=== PATIENT | female | born 1975 | race Caucasian/White ===

== ENCOUNTER 2017-02-26 00:50 | Emergency (ER) | payer OTHER, SELFPAY | END 2017-02-26 01:35 | disposition home or self-care (01) | LOC: NAV ERS 00:50 | DX: R25.2 Cramp and spasm (principal); I25.10 Atherosclerotic heart disease of native coronary artery without angina pectoris; G89.29 Other chronic pain; M54.9 Dorsalgia, unspecified; I12.9 Hypertensive chronic kidney disease with stage 1 through stage 4 chronic kidney disease, or unspecified chronic kidney disease; E11.22 Type 2 diabetes mellitus with diabetic chronic kidney disease; N18.3 Chronic kidney disease, stage 3 (moderate); F41.9 Anxiety disorder, unspecified; F32.9 Major depressive disorder, single episode, unspecified; F17.210 Nicotine dependence, cigarettes, uncomplicated; Z79.899 Other long term (current) drug therapy; Z79.4 Long term (current) use of insulin | CPT/HCPCS: 99283 ==

== ENCOUNTER 2017-04-04 22:13 | Emergency (ER) | payer SELFPAY ==
[2017-04-04] MEDS ORDERED: Ketorolac Tromethamine 60 MG/2 ML VIAL ONE (23:02)
[2017-04-04] MEDS ORDERED: Orphenadrine Citrate 60 MG/2 ML VIAL ONE (23:02)
[2017-04-04] MEDS ORDERED: Furosemide 40 MG/4 ML VIAL ONE (23:53)
== END 2017-04-05 00:51 | disposition home or self-care (01) ==
LOC: NAV ERS 22:13
DX: M54.5 Low back pain (principal); I25.10 Atherosclerotic heart disease of native coronary artery without angina pectoris; I25.2 Old myocardial infarction; I12.9 Hypertensive chronic kidney disease with stage 1 through stage 4 chronic kidney disease, or unspecified chronic kidney disease; N18.3 Chronic kidney disease, stage 3 (moderate); E11.9 Type 2 diabetes mellitus without complications; F32.9 Major depressive disorder, single episode, unspecified; F41.9 Anxiety disorder, unspecified; F17.290 Nicotine dependence, other tobacco product, uncomplicated; Z79.4 Long term (current) use of insulin; Z79.899 Other long term (current) drug therapy; Z79.02 Long term (current) use of antithrombotics/antiplatelets
CPT/HCPCS: 96372; 96374; 96375; J0360; J1885; J1940; J2360

== ENCOUNTER 2017-05-13 21:43 | Emergency (ER) | payer MEDICAID, OTHER, SELFPAY ==
[2017-05-13] MEDS ORDERED: Ketorolac Tromethamine 30 MG/ML VIAL ONE (21:59)
[2017-05-13] MEDS ORDERED: Ondansetron HCl/PF 4 MG/2 ML Vial ONE (22:00)
[2017-05-13] MEDS ORDERED: Labetalol HCl 100 MG/20 ML VIAL ONE (22:00)
[2017-05-13 22:20] LABS: Hemoglobin 14.2 g/dL (12.0-16.0); Mean Corpuscular HGB CONC 33.3 g/dL (32.0-36.0); Mean Corpuscular Hemoglobin 28.8 pg (27.0-31.0); Mean Corpuscular Volume 86.6 fl (81.0-99.0); Mean Platelet Volume 11.1 fL (7.4-10.4); Platelet Count 186 thou/uL (130-400); RBC Distribution Width 11.8 % (11.5-14.5); Red Blood Cell (RBC) Count 4.94 mill/uL (4.20-5.40); White Blood Cell (WBC) Count 8.6 thou/uL (4.8-10.8)
--- NOTE | 2017-05-13 22:20 | RAD ---
AP VIEW CHEST 05/13/17 HISTORY: Chest pain. AP view of the chest is obtained. The lungs are well aerated. No evidence of active intrathoracic di sease seen. No evidence of effusions, pneumonia or pneumothorax seen. IMPRESSION: Unremarkable AP view chest. POS: [facility]
[2017-05-13 22:28] LABS: ALT (SGPT) 76 U/L (8-55); AST (SGOT) 93 U/L (5-34); Albumin 3.7 g/dL (3.5-5.0); Alkaline Phosphatase 155 U/L (40-150); Anion Gap 20 mmol/L (10-20); BUN (Urea Nitrogen) 15 mg/dL (7.0-18.7); Bilirubin, Total 0.3 mg/dL (0.2-1.2); CK (CPK) 81 U/L (29-168); Calc. Creatinine Clearance 0 mL/min (70-130); Calcium 8.5 mg/dL (7.8-10.44); Carbon Dioxide 19 mmol/L (22-29); Chloride 94 mmol/L (98-107); Estimated GFR-MDRD 33; Globulin 4.3 g/dL (2.4-3.5); Potassium 3.9 mmol/L (3.5-5.1); Sodium 129 mmol/L (136-145)
[2017-05-13 22:30] LABS: CKMB 2.3 ng/mL (0-6.6); Troponin I 0.017 ng/mL (< 0.028)
[2017-05-13 22:32] LABS: Eosinophils 1 % (0-10); Lymphocytes 27 % (21-51); MDiff Complete? YES; Monocytes 4 % (0-10); Neutrophil 68 % (42-75); PLT Morphology Comment Appears Adequate; RBC Morphology Normal
[2017-05-13] MEDS ORDERED: Sodium Chloride 0.9% 100 ML ONE (22:34)
[2017-05-13 22:44] LABS: Bilirubin Negative (Negative); Blood, Urine Small (Negative); Clarity Clear (Clear); Glucose, Urine (Dipstick) >=1000 mg/dL (Negative); Leukocyte Negative (Negative); Nitrite Negative (Negative); Protein, Urine (Dipstick) > or equal to 300 mg/dL (Neg-Trace); Specific Gravity, Urine 1.015 (1.005-1.030); Urobilinogen 0.2 mg/dL (0.2-1.0); pH, Urine 5.5 (5.0-9.0)
[2017-05-13 22:46] LABS: Glucose 610 mg/dL (70-105)
[2017-05-13] MEDS ORDERED: Insulin Regular 300 UNITS/3 ML VIAL ONE (22:47)
[2017-05-13 22:53] LABS: RBC/HPF 0-3 HPF (0-3); WBC/HPF None Seen HPF (0-3)
[2017-05-13 22:54] LABS: Bacteria/HPF 1+ HPF (None Seen); Squamous Epithelial 0-3 HPF (0-3); Yeast-All Forms Rare HPF (None Seen)
[2017-05-14] MEDS ORDERED: Fentanyl 100 MCG/2 ML VIAL ONE (00:27)
[2017-05-14] MEDS ORDERED: Sodium Chloride 0.9% 1,000 ML ONE (00:27)
[2017-05-14] MEDS ORDERED: Ondansetron HCl/PF 4 MG/2 ML Vial ONE (00:27)
== END 2017-05-14 01:15 | disposition home or self-care (01) ==
LOC: NAV ERS 21:43
DX: E11.65 Type 2 diabetes mellitus with hyperglycemia (principal); R07.9 Chest pain, unspecified; K52.9 Noninfective gastroenteritis and colitis, unspecified; I25.10 Atherosclerotic heart disease of native coronary artery without angina pectoris; I21.3 ST elevation (STEMI) myocardial infarction of unspecified site; I10 Essential (primary) hypertension; F41.9 Anxiety disorder, unspecified; F32.9 Major depressive disorder, single episode, unspecified; F17.210 Nicotine dependence, cigarettes, uncomplicated; Z79.84 Long term (current) use of oral hypoglycemic drugs; Z79.4 Long term (current) use of insulin; Z79.899 Other long term (current) drug therapy
CPT/HCPCS: 36415; 36416; 71010; 80053; 81003; 81015; 82010; 82553; 83880; 84484; 85025; 93005; 96361; 96374; 96375; 96376; J1815; J1885; J2405; J3010; J7050

== ENCOUNTER 2017-09-30 07:15 | Emergency (ER) | payer SELFPAY ==
[2017-09-30 07:44] LABS: Bilirubin Negative (Negative); Blood, Urine Trace (Negative); Clarity Clear (Clear); Glucose, Urine (Dipstick) 100 mg/dL (Negative); Leukocyte Trace (Negative); Nitrite Positive (Negative); Protein, Urine (Dipstick) > or equal to 300 mg/dL (Neg-Trace); Urobilinogen 0.2 mg/dL (0.2-1.0); pH, Urine 5.5 (5.0-9.0)
[2017-09-30 07:48] LABS: Pregnancy Test - Urine (BHCG) Negative (Negative); Pregu Control Background? CLEAR/WHITE (CLR/WHITE); Pregu Control Bar Appear? YES (CONTROL BAR)
[2017-09-30 07:50] LABS: Bacteria/HPF 2+ HPF (None Seen); RBC/HPF 0-3 HPF (0-3); Squamous Epithelial 0-3 HPF (0-3); WBC/HPF 21-50 HPF (0-3)
[2017-09-30] MEDS ORDERED: Sodium Chloride 0.9% 1,000 ML ONE (08:07)
[2017-09-30] MEDS ORDERED: Ondansetron HCl/PF 4 MG/2 ML Vial ONE (08:07)
[2017-09-30] MEDS ORDERED: Ketorolac Tromethamine 30 MG/ML VIAL ONE (08:07)
[2017-09-30 08:15] LABS: #Basophils 0.1 thou/uL (0.0-0.2); #Eosinphils 0.1 thou/uL (0.0-0.7); #Lymphocytes 3.2 thou/uL (1.20-3.40); #Monocytes 0.5 thou/uL (0.11-0.59); #Neutrophils 7.1 thou/uL (1.40-6.50); %Basophils 1.1 % (0.0-1.0); %Eosinophils 0.7 % (0.0-10.0); %Lymphocytes 29.2 % (21.0-51.0); %Monocytes 4.6 % (0.0-10.0); %Neutrophils 64.4 % (42.0-75.0); Hemoglobin 12.3 g/dL (12.0-16.0); Mean Corpuscular HGB CONC 33.8 g/dL (32.0-36.0); Mean Corpuscular Hemoglobin 29.6 pg (27.0-31.0); Mean Corpuscular Volume 87.5 fl (81.0-99.0); Platelet Count 222 thou/uL (130-400); RBC Distribution Width 11.2 % (11.5-14.5); Red Blood Cell (RBC) Count 4.16 mill/uL (4.20-5.40)
[2017-09-30 08:30] LABS: ALT (SGPT) 30 U/L (8-55); AST (SGOT) 27 U/L (5-34); Albumin 3.5 g/dL (3.5-5.0); Alkaline Phosphatase 112 U/L (40-150); Anion Gap 15 mmol/L (10-20); BUN (Urea Nitrogen) 12 mg/dL (7.0-18.7); Bilirubin, Total 0.2 mg/dL (0.2-1.2); Calc. Creatinine Clearance 0 mL/min (70-130); Calcium 8.3 mg/dL (7.8-10.44); Carbon Dioxide 21 mmol/L (22-29); Chloride 101 mmol/L (98-107); Estimated GFR-MDRD 48; Globulin 3.1 g/dL (2.4-3.5); Glucose 207 mg/dL (70-105); Lipase 26 U/L (8-78); Potassium 3.7 mmol/L (3.5-5.1); Protein, Total 6.6 g/dL (6.0-8.3); Sodium 133 mmol/L (136-145)
[2017-09-30] MEDS ORDERED: cefTRIAXone\\ROCEPHIN 1 GM VIAL ONE (08:43)
== END 2017-09-30 09:23 | disposition home or self-care (01) ==
LOC: NAV ERS 07:15
DX: N39.0 Urinary tract infection, site not specified (principal); I12.9 Hypertensive chronic kidney disease with stage 1 through stage 4 chronic kidney disease, or unspecified chronic kidney disease; E11.22 Type 2 diabetes mellitus with diabetic chronic kidney disease; N18.3 Chronic kidney disease, stage 3 (moderate); F41.9 Anxiety disorder, unspecified; F32.9 Major depressive disorder, single episode, unspecified; I25.10 Atherosclerotic heart disease of native coronary artery without angina pectoris; I25.2 Old myocardial infarction; F17.210 Nicotine dependence, cigarettes, uncomplicated; F17.290 Nicotine dependence, other tobacco product, uncomplicated; Z79.4 Long term (current) use of insulin; Z79.899 Other long term (current) drug therapy
CPT/HCPCS: 80053; 81003; 81015; 81025; 82150; 83690; 85025; 87077; 87086; 87186; 96361; 96374; 96375; J0696; J1885; J2405; J7050

== ENCOUNTER 2017-11-03 21:48 | Emergency (ER) | payer OTHER, SELFPAY ==
[2017-11-03] MEDS ORDERED: Ondansetron HCl/PF 4 MG/2 ML Vial ONE (22:11)
[2017-11-03] MEDS ORDERED: Morphine 4 MG/ML Carpuject ONE (22:11)
[2017-11-03 22:44] LABS: Bilirubin Negative (Negative); Blood, Urine Trace (Negative); Clarity Slightly Cloudy (Clear); Glucose, Urine (Dipstick) 500 mg/dL (Negative); Leukocyte Negative (Negative); Nitrite Positive (Negative); Protein, Urine (Dipstick) > or equal to 300 mg/dL (Neg-Trace); Specific Gravity, Urine 1.015 (1.005-1.030); Urobilinogen 0.2 mg/dL (0.2-1.0)
[2017-11-03] MEDS ORDERED: Sodium Chloride 0.9% 100 ML ONE (22:52)
[2017-11-03] MEDS ORDERED: Sodium Chloride 0.9% 0 ML ONE (22:52)
[2017-11-03] MEDS ORDERED: Piperacillin/Tazobactam 3.375 GM VIAL ONE (22:52)
[2017-11-03 22:54] LABS: Hemoglobin 14.4 g/dL (12.0-16.0); Large Platelets SLIGHT; Lymphocytes 27 % (21-51); MDiff Complete? YES; Mean Corpuscular HGB CONC 34.7 g/dL (32.0-36.0); Mean Corpuscular Hemoglobin 29.7 pg (27.0-31.0); Mean Corpuscular Volume 85.7 fl (81.0-99.0); Mean Platelet Volume 12.1 fL (7.4-10.4); Monocytes 5 % (0-10); Neutrophil 68 % (42-75); PLT Morphology Comment Appears Adequate; Platelet Count 235 thou/uL (130-400); RBC Distribution Width 10.7 % (11.5-14.5); RBC Morphology Normal; Red Blood Cell (RBC) Count 4.84 mill/uL (4.20-5.40)
[2017-11-03 22:56] LABS: ALT (SGPT) 34 U/L (8-55); AST (SGOT) 36 U/L (5-34); Alkaline Phosphatase 154 U/L (40-150); Anion Gap 17 mmol/L (10-20); BUN (Urea Nitrogen) 19 mg/dL (7.0-18.7); Bacteria/HPF 4+ HPF (None Seen); Bilirubin, Total 0.4 mg/dL (0.2-1.2); Calc. Creatinine Clearance 0 mL/min (70-130); Calcium 9.6 mg/dL (7.8-10.44); Carbon Dioxide 23 mmol/L (22-29); Chloride 91 mmol/L (98-107); Estimated GFR-MDRD 31; Globulin 4.2 g/dL (2.4-3.5); Potassium 3.8 mmol/L (3.5-5.1); Protein, Total 8.2 g/dL (6.0-8.3); Sodium 127 mmol/L (136-145); Squamous Epithelial 0-3 HPF (0-3)
[2017-11-03 22:58] LABS: Glucose 590 mg/dL (70-105)
[2017-11-03] MEDS ORDERED: Insulin Regular 300 UNITS/3 ML VIAL ONE (22:59)
--- NOTE | 2017-11-03 23:01 | RAD ---
THREE VIEWS OF THE RIGHT FOOT 11/03/17 HISTORY: Open sores on right foot. Right foot pain. Patient states the wounds are not getting better and have been present for about one month. COMPARISON: 07/06/15. FINDINGS: There is soft tissue irregularity seen involving the plantar aspect of the great toe. There is lucenc y and osseous destruction of the distal portion and tuft of the distal phalanx of the right great toe suggesting osteomyelitis. There is no evidence of a fracture or dislocation. No other osseous abnorm ality is seen. IMPRESSION: Osteomyelitis distal phalanx right great toe with ulceration/wound involving the distal and plantar a spect of the right great toe. POS: [facility]
[2017-11-03] MEDS ORDERED: Metoprolol Tartrate 5 MG/5 ML VIAL ONE (23:04)
[2017-11-03 23:18] LABS: Base Excess -0.4 mEq/L (-2 - +2); Hemoglobin (Hb) 13.4 g/dL (11.7-15.5); pH (venous) 7.39 (7.35-7.45)
[2017-11-03] MEDS ORDERED: Sodium Chloride 0.9% 250 ML 250 ML ONE (23:46)
[2017-11-04] MEDS ORDERED: Metoprolol Tartrate 5 MG/5 ML VIAL ONE (00:05)
[2017-11-04] MEDS ORDERED: diphenhydrAMINE 50 MG/ML VIAL ONE (00:10)
== END 2017-11-04 00:20 | disposition short-term general hospital (02) ==
LOC: NAV ERS 21:48
DX: E10.65 Type 1 diabetes mellitus with hyperglycemia (principal); L03.031 Cellulitis of right toe; N39.0 Urinary tract infection, site not specified; M86.9 Osteomyelitis, unspecified; I25.10 Atherosclerotic heart disease of native coronary artery without angina pectoris; K21.9 Gastro-esophageal reflux disease without esophagitis; I13.10 Hypertensive heart and chronic kidney disease without heart failure, with stage 1 through stage 4 chronic kidney disease, or unspecified chronic kidney disease; E10.22 Type 1 diabetes mellitus with diabetic chronic kidney disease; N18.3 Chronic kidney disease, stage 3 (moderate); F41.9 Anxiety disorder, unspecified; F32.9 Major depressive disorder, single episode, unspecified; F17.210 Nicotine dependence, cigarettes, uncomplicated; Z79.899 Other long term (current) drug therapy
CPT/HCPCS: 36415; 80053; 81003; 81015; 82010; 82805; 83605; 85025; 85652; 87040; 87077; 87086; 87186; 96365; 96367; 96372; 96375; 96376; J1200; J1815; J2270; J2405; J2543; J3370; J7050

== ENCOUNTER 2018-01-03 15:43 | Emergency (ER) | payer OTHER | END 2018-01-03 16:15 | disposition home or self-care (01) | LOC: NAV ERS 15:43 | DX: Z48.817 Encounter for surgical aftercare following surgery on the skin and subcutaneous tissue (principal); L08.9 Local infection of the skin and subcutaneous tissue, unspecified; I10 Essential (primary) hypertension; K21.9 Gastro-esophageal reflux disease without esophagitis; G89.29 Other chronic pain; M86.9 Osteomyelitis, unspecified; E11.9 Type 2 diabetes mellitus without complications; I25.10 Atherosclerotic heart disease of native coronary artery without angina pectoris; F41.9 Anxiety disorder, unspecified; F32.9 Major depressive disorder, single episode, unspecified; F17.210 Nicotine dependence, cigarettes, uncomplicated; Z79.4 Long term (current) use of insulin; Z79.899 Other long term (current) drug therapy | CPT/HCPCS: 99283 ==

== ENCOUNTER 2018-04-22 22:18 | Emergency (ER) | payer OTHER ==
[2018-04-22 23:41] LABS: #Basophils 0.1 thou/uL (0.0-0.2); #Eosinphils 0.1 thou/uL (0.0-0.7); #Lymphocytes 2.7 thou/uL (1.20-3.40); #Monocytes 0.6 thou/uL (0.11-0.59); %Basophils 0.8 % (0.0-1.0); %Eosinophils 1.1 % (0.0-10.0); %Lymphocytes 23.6 % (21.0-51.0); %Monocytes 4.8 % (0.0-10.0); %Neutrophils 69.7 % (42.0-75.0); Hemoglobin 11.3 g/dL (12.0-16.0); Mean Corpuscular HGB CONC 34.2 g/dL (32.0-36.0); Mean Corpuscular Hemoglobin 29.1 pg (27.0-31.0); Mean Corpuscular Volume 85.1 fL (78.0-98.0); Platelet Count 260 thou/uL (130-400); Red Blood Cell (RBC) Count 3.86 mill/uL (4.20-5.40); White Blood Cell (WBC) Count 11.4 thou/uL (4.8-10.8)
[2018-04-23] LABS: ALT (SGPT) 26 U/L (8-55); AST (SGOT) 19 U/L (5-34); Alkaline Phosphatase 159 U/L (40-150); Anion Gap 15 mmol/L (10-20); BUN (Urea Nitrogen) 23 mg/dL (7.0-18.7); Bilirubin, Total 0.4 mg/dL (0.2-1.2); Calc. Creatinine Clearance 0 mL/min (70-130); Calcium 9.1 mg/dL (7.8-10.44); Carbon Dioxide 23 mmol/L (22-29); Chloride 98 mmol/L (98-107); Estimated GFR-MDRD 27; Globulin 3.5 g/dL (2.4-3.5); Glucose 348 mg/dL (70-105); Potassium 3.7 mmol/L (3.5-5.1); Protein, Total 7.5 g/dL (6.0-8.3); Sodium 132 mmol/L (136-145)
[2018-04-23 00:04] LABS: Bilirubin Negative (Negative); Blood, Urine Small (Negative); Clarity Slightly Cloudy (Clear); Glucose, Urine (Dipstick) 500 mg/dL (Negative); Leukocyte Trace (Negative); Nitrite Negative (Negative); Protein, Urine (Dipstick) > or equal to 300 mg/dL (Neg-Trace); Urobilinogen 0.2 mg/dL (0.2-1.0); pH, Urine 5.5 (5.0-9.0)
[2018-04-23 00:05] LABS: Bacteria/HPF Rare-Few HPF (None Seen); Squamous Epithelial 0-3 HPF (0-3)
[2018-04-23] MEDS ORDERED: cefTRIAXone\\ROCEPHIN 2 GM VIAL ONE ×2 (00:28→00:29)
[2018-04-23] MEDS ORDERED: Insulin Regular 300 UNITS/3 ML VIAL ONE (00:28)
[2018-04-23] MEDS ORDERED: cloNIDine 0.1 MG TAB ONE (00:28)
[2018-04-23] MEDS ORDERED: Sodium Chloride 0.9% 100 ML ONE (00:28)
[2018-04-23] MEDS ORDERED: Sodium Chloride 0.9% 250 ML 250 ML ONE (00:48)
[2018-04-23] MEDS ORDERED: Ondansetron HCl/PF 4 MG/2 ML Vial ONE (00:49)
[2018-04-23] MEDS ORDERED: Fentanyl 100 MCG/2 ML VIAL ONE (00:49)
--- NOTE | 2018-04-23 09:50 | RAD ---
RIGHT FOOT 3 VIEWS: HISTORY: Ulcer along the plantar soft tissues. COMPARISON: 01/10/18. FINDINGS: Ulceration involving the plantar soft tissues at the level of the 1st metatarsophalangeal joint space . No radiopaque foreign body. There is associated soft tissue swelling. No radiographic evidence o f osteomyelitis. Lisfranc alignment is maintained. Joint spaces are preserved. IMPRESSION: Ulceration as above. No radiographic evidence of osteomyelitis. POS: [facility]
== END 2018-04-23 01:23 | disposition short-term general hospital (02) ==
LOC: NAV ERS 22:18
DX: E11.621 Type 2 diabetes mellitus with foot ulcer (principal); L97.519 Non-pressure chronic ulcer of other part of right foot with unspecified severity; E11.65 Type 2 diabetes mellitus with hyperglycemia; I12.9 Hypertensive chronic kidney disease with stage 1 through stage 4 chronic kidney disease, or unspecified chronic kidney disease; N18.3 Chronic kidney disease, stage 3 (moderate); I25.10 Atherosclerotic heart disease of native coronary artery without angina pectoris; Z79.4 Long term (current) use of insulin; K21.9 Gastro-esophageal reflux disease without esophagitis; F41.9 Anxiety disorder, unspecified; F32.9 Major depressive disorder, single episode, unspecified; F17.210 Nicotine dependence, cigarettes, uncomplicated; Z79.899 Other long term (current) drug therapy
CPT/HCPCS: 36416; 80053; 81003; 81015; 83605; 85025; 87040; 87070; 87077; 87186; 87205; 96365; 96367; 96375; 36415-59; J0696; J1815; J2405; J3010; J3370; J7050

== ENCOUNTER 2018-05-12 22:04 | Emergency (ER) | payer OTHER, SELFPAY ==
[2018-05-12] MEDS ORDERED: Nitroglycerin 0.4 MG TAB (25 Tab Bottle) ONE (22:43)
[2018-05-12] MEDS ORDERED: Acetaminophen 500 MG TAB ONE (22:43)
[2018-05-12] MEDS ORDERED: Ondansetron ODT 4 MG TAB ONE (22:43)
[2018-05-12] MEDS ORDERED: Ondansetron HCl/PF 4 MG/2 ML Vial ONE (22:44)
[2018-05-12 22:50] LABS: #Basophils 0.1 thou/uL (0.0-0.2); #Eosinphils 0.1 thou/uL (0.0-0.7); #Lymphocytes 3.7 thou/uL (1.20-3.40); #Monocytes 0.6 thou/uL (0.11-0.59); #Neutrophils 6.9 thou/uL (1.40-6.50); %Basophils 1.1 % (0.0-1.0); %Eosinophils 0.9 % (0.0-10.0); %Lymphocytes 32.5 % (21.0-51.0); %Neutrophils 60.6 % (42.0-75.0); Hemoglobin 11.8 g/dL (12.0-16.0); Mean Corpuscular HGB CONC 32.8 g/dL (32.0-36.0); Mean Corpuscular Hemoglobin 28.7 pg (27.0-31.0); Mean Corpuscular Volume 87.6 fL (78.0-98.0); Mean Platelet Volume 7.8 fL (7.4-10.4); Platelet Count 282 thou/uL (130-400); RBC Distribution Width 11.7 % (11.5-14.5); Red Blood Cell (RBC) Count 4.12 mill/uL (4.20-5.40); White Blood Cell (WBC) Count 11.4 thou/uL (4.8-10.8)
[2018-05-12 23:06] LABS: ALT (SGPT) 24 U/L (8-55); AST (SGOT) 21 U/L (5-34); Albumin 3.8 g/dL (3.5-5.0); Alkaline Phosphatase 82 U/L (40-150); Anion Gap 20 mmol/L (10-20); BUN (Urea Nitrogen) 21 mg/dL (7.0-18.7); Bilirubin, Total 0.2 mg/dL (0.2-1.2); CKMB 2.5 ng/mL (0-6.6); Calc. Creatinine Clearance 0 mL/min (70-130); Calcium 8.9 mg/dL (7.8-10.44); Carbon Dioxide 13 mmol/L (22-29); Chloride 107 mmol/L (98-107); Estimated GFR-MDRD 29; Globulin 3.4 g/dL (2.4-3.5); Glucose 115 mg/dL (70-105); Potassium 4.7 mmol/L (3.5-5.1); Protein, Total 7.2 g/dL (6.0-8.3); Sodium 135 mmol/L (136-145); Troponin I 0.011 ng/mL (< 0.028)
--- NOTE | 2018-05-12 23:12 | RAD ---
PORTABLE CHEST: 05/12/18 HISTORY: Chest pain, left sided. COMPARISON: 05/01/18 STUDY. The heat size and mediastinum are within normal limits. Right sided hemosplit catheter overlies the p roximal superior vena cava. The lungs are clear of any infiltrative process. IMPRESSION: No active intrathoracic disease. POS: [facility]
== END 2018-05-13 00:05 | disposition short-term general hospital (02) ==
LOC: NAV ERS 22:04
DX: R07.9 Chest pain, unspecified (principal); E87.2 Acidosis; I25.10 Atherosclerotic heart disease of native coronary artery without angina pectoris; E11.9 Type 2 diabetes mellitus without complications; K21.9 Gastro-esophageal reflux disease without esophagitis; I25.2 Old myocardial infarction; I10 Essential (primary) hypertension; N18.3 Chronic kidney disease, stage 3 (moderate); F41.9 Anxiety disorder, unspecified; F32.9 Major depressive disorder, single episode, unspecified; F17.210 Nicotine dependence, cigarettes, uncomplicated; Z79.899 Other long term (current) drug therapy; Z79.84 Long term (current) use of oral hypoglycemic drugs
CPT/HCPCS: 71045; 80053; 82553; 84484; 85025; 93005; 94760; 96374; J2405; Q0162

== ENCOUNTER 2018-06-16 17:53 | Emergency (ER) | payer OTHER, SELFPAY | END 2018-06-16 18:29 | disposition home or self-care (01) | LOC: NAV ERS 17:53 | DX: Z48.00 Encounter for change or removal of nonsurgical wound dressing (principal); J06.9 Acute upper respiratory infection, unspecified; I25.10 Atherosclerotic heart disease of native coronary artery without angina pectoris; E11.9 Type 2 diabetes mellitus without complications; K21.9 Gastro-esophageal reflux disease without esophagitis; I12.0 Hypertensive chronic kidney disease with stage 5 chronic kidney disease or end stage renal disease; N18.3 Chronic kidney disease, stage 3 (moderate); Z77.22 Contact with and (suspected) exposure to environmental tobacco smoke (acute) (chronic); Z79.899 Other long term (current) drug therapy; Z79.84 Long term (current) use of oral hypoglycemic drugs | CPT/HCPCS: 99283 ==

== ENCOUNTER 2018-12-04 23:09 | Emergency (ER) | payer OTHER ==
--- NOTE | 2018-12-04 23:44 | RAD ---
LEFT FOOT THREE VIEWS: INDICATIONS: Rolled left ankle with left foot pain. COMPARISON: 04/10/2016 FINDINGS: There are well corticated, periarticular, erosive changes involving the dorsal medial aspect of the g reat toe metatarsal, which can be seen with gout. There is mild metatarsus prima varus deformity of the first ray. No acute fracture or subluxation is evident. IMPRESSION: 1. Periarticular erosions involving the medial aspect of the great toe metatarsal head can be seen w ith entities such as gout. 2. No acute fracture or subluxation demonstrated. POS: [facility]
== END 2018-12-04 23:49 | disposition home or self-care (01) ==
LOC: NAV ERS 23:09
DX: S93.602A Unspecified sprain of left foot, initial encounter (principal); I25.10 Atherosclerotic heart disease of native coronary artery without angina pectoris; I25.2 Old myocardial infarction; I12.9 Hypertensive chronic kidney disease with stage 1 through stage 4 chronic kidney disease, or unspecified chronic kidney disease; N18.3 Chronic kidney disease, stage 3 (moderate); E11.22 Type 2 diabetes mellitus with diabetic chronic kidney disease; K21.9 Gastro-esophageal reflux disease without esophagitis; F41.9 Anxiety disorder, unspecified; F32.9 Major depressive disorder, single episode, unspecified; F17.210 Nicotine dependence, cigarettes, uncomplicated; Z79.891 Long term (current) use of opiate analgesic; Z79.899 Other long term (current) drug therapy; Z79.4 Long term (current) use of insulin; X50.9XXA Other and unspecified overexertion or strenuous movements or postures, initial encounter

== ENCOUNTER 2019-02-03 15:17 | Emergency (ER) | payer OTHER ==
[2019-02-03] MEDS ORDERED: Sodium Chloride 0.9% 1,000 ML ONE ×2 (15:42→17:02)
[2019-02-03] MEDS ORDERED: Ondansetron PF 4 MG/2 ML Vial ONE (15:42)
[2019-02-03] MEDS ORDERED: Sodium Chloride 0.9% 250 ML 250 ML ONE (15:56)
[2019-02-03] MEDS ORDERED: Metoclopramide HCl 10 MG/2 ML VIAL ONE ×2 (15:58→17:56)
[2019-02-03] MEDS ORDERED: diphenhydrAMINE 50 MG/ML VIAL ONE (15:58)
[2019-02-03 16:11] LABS: #Basophils 0.1 thou/uL (0.0-0.2); #Lymphocytes 5.2 thou/uL (1.20-3.40); #Monocytes 0.6 thou/uL (0.11-0.59); #Neutrophils 12.6 thou/uL (1.40-6.50); %Basophils 0.6 % (0.0-1.0); %Eosinophils 0.2 % (0.0-10.0); %Lymphocytes 28.2 % (21.0-51.0); %Monocytes 3.4 % (0.0-10.0); %Neutrophils 67.7 % (42.0-75.0); Hemoglobin 14.5 g/dL (12.0-16.0); Mean Corpuscular HGB CONC 33.1 g/dL (32.0-36.0); Mean Corpuscular Hemoglobin 28.8 pg (27.0-31.0); Mean Corpuscular Volume 86.8 fL (78.0-98.0); Mean Platelet Volume 7.8 fL (7.4-10.4); Platelet Count 375 thou/uL (130-400); RBC Distribution Width 13.1 % (11.5-14.5); Red Blood Cell (RBC) Count 5.05 mill/uL (4.20-5.40); White Blood Cell (WBC) Count 18.6 thou/uL (4.8-10.8)
[2019-02-03 16:24] LABS: ALT (SGPT) 21 U/L (8-55); AST (SGOT) 34 U/L (5-34); Albumin 3.8 g/dL (3.5-5.0); Alkaline Phosphatase 181 U/L (40-150); Anion Gap 20 mmol/L (10-20); BUN (Urea Nitrogen) 25 mg/dL (7.0-18.7); Bilirubin, Total 0.3 mg/dL (0.2-1.2); CK (CPK) 68 U/L (29-168); Calc. Creatinine Clearance 0 mL/min (70-130); Carbon Dioxide 18 mmol/L (22-29); Chloride 106 mmol/L (98-107); Estimated GFR-MDRD 23; Globulin 3.9 g/dL (2.4-3.5); Glucose 97 mg/dL (70-105); Lipase 12 U/L (8-78); Potassium 4.3 mmol/L (3.5-5.1); Protein, Total 7.7 g/dL (6.0-8.3); Sodium 140 mmol/L (136-145)
--- NOTE | 2019-02-03 17:00 | RAD ---
AP VIEW CHEST SUPINE AND UPRIGHT VIEWS ABDOMEN 02/03/19 HISTORY: Renal failure. Diabetes. AP view chest as well as supine and upright views abdomen obtained. AP view chest is unremarkable. No evidence of active intrathoracic disease seen. No evidence of effus ions, pneumonia, or pneumothorax seen. Two views abdomen demonstrate abdominal gas pattern to be nonspecific. No evidence of obstruction or ileus seen. No dilated loops of bowel seen. No evidence of free intraperitoneal air seen. IMPRESSION: Unremarkable AP view chest and two views abdomen. POS: [facility]
[2019-02-03 18:02] LABS: Bilirubin Negative (Negative); Blood, Urine Trace (Negative); Glucose, Urine (Dipstick) Negative (Negative); Leukocyte Small (Negative); Nitrite Negative (Negative); Protein, Urine (Dipstick) > or equal to 300 mg/dL (Neg-Trace); Urobilinogen 0.2 mg/dL (0.2-1.0)
[2019-02-03 18:04] LABS: Clarity Hazy (Clear)
[2019-02-03 18:16] LABS: Bacteria/HPF 4+ HPF (None Seen); RBC/HPF 0-3 HPF (0-3); WBC/HPF 21-50 HPF (0-3)
[2019-02-03] MEDS ORDERED: Sodium Chloride 0.9% 100 ML ONE (18:31)
[2019-02-03] MEDS ORDERED: cefTRIAXone\\ROCEPHIN 1 GM VIAL ONE (18:31)
== END 2019-02-03 19:13 | disposition home or self-care (01) ==
LOC: NAV ERS 15:17
DX: N39.0 Urinary tract infection, site not specified (principal); R11.2 Nausea with vomiting, unspecified; I25.10 Atherosclerotic heart disease of native coronary artery without angina pectoris; E11.9 Type 2 diabetes mellitus without complications; K21.9 Gastro-esophageal reflux disease without esophagitis; I12.9 Hypertensive chronic kidney disease with stage 1 through stage 4 chronic kidney disease, or unspecified chronic kidney disease; N18.3 Chronic kidney disease, stage 3 (moderate); F17.210 Nicotine dependence, cigarettes, uncomplicated; I25.2 Old myocardial infarction; Z79.891 Long term (current) use of opiate analgesic; Z79.4 Long term (current) use of insulin; Z79.899 Other long term (current) drug therapy
CPT/HCPCS: 36416; 74022; 80053; 81003; 81015; 82550; 83690; 84484; 85025; 87077; 87086; 87186; 93005; 96361; 96365; 96367; 96375; 96376; J0696; J1200; J2405; J2765; J3490; J7050

== ENCOUNTER 2019-02-14 11:20 | Inpatient (IN) | payer OTHER ==
[2019-02-14] MEDS ORDERED: Acetaminophen 500 MG TAB ONE (11:28)
[2019-02-14] MEDS ORDERED: Ondansetron PF 4 MG/2 ML Vial ONE (12:32)
[2019-02-14 12:33] LABS: #Basophils 0.1 thou/uL (0.0-0.2); #Lymphocytes 1.5 thou/uL (1.20-3.40); #Monocytes 0.7 thou/uL (0.11-0.59); #Neutrophils 11.7 thou/uL (1.40-6.50); %Basophils 0.5 % (0.0-1.0); %Eosinophils 0.2 % (0.0-10.0); %Lymphocytes 10.6 % (21.0-51.0); %Neutrophils 83.7 % (42.0-75.0); Hemoglobin 11.3 g/dL (12.0-16.0); Mean Corpuscular HGB CONC 33.4 g/dL (32.0-36.0); Mean Corpuscular Hemoglobin 28.8 pg (27.0-31.0); Mean Corpuscular Volume 86.3 fL (78.0-98.0); Platelet Count 201 thou/uL (130-400); RBC Distribution Width 12.3 % (11.5-14.5); Red Blood Cell (RBC) Count 3.91 mill/uL (4.20-5.40)
--- NOTE | 2019-02-14 12:34 | RAD ---
AP view chest. HISTORY: Fever. AP view chest is obtained. The lungs are well aerated. No evidence of active intrathoracic disease se en. No evidence of effusions, pneumonia or pneumothorax seen IMPRESSION: Unremarkable AP view chest.
[2019-02-14 12:39] LABS: ALT (SGPT) 58 U/L (8-55); AST (SGOT) 56 U/L (5-34); Albumin 3.2 g/dL (3.5-5.0); Alkaline Phosphatase 193 U/L (40-150); Anion Gap 17 mmol/L (10-20); BUN (Urea Nitrogen) 18 mg/dL (7.0-18.7); Bilirubin, Total 0.5 mg/dL (0.2-1.2); Calc. Creatinine Clearance 0 mL/min (70-130); Calcium 8.2 mg/dL (7.8-10.44); Carbon Dioxide 18 mmol/L (22-29); Chloride 101 mmol/L (98-107); Estimated GFR-MDRD 24; Globulin 2.8 g/dL (2.4-3.5); Glucose 243 mg/dL (70-105); Lipase 20 U/L (8-78); Potassium 4.8 mmol/L (3.5-5.1); Sodium 131 mmol/L (136-145)
[2019-02-14 13:01] LABS: Bilirubin Negative (Negative); Blood, Urine Trace (Negative); Clarity Cloudy (Clear); Glucose, Urine (Dipstick) 250 mg/dL (Negative); Leukocyte Negative (Negative); Nitrite Negative (Negative); Protein, Urine (Dipstick) > or equal to 300 mg/dL (Neg-Trace); Specific Gravity, Urine 1.025 (1.005-1.030); Urobilinogen 0.2 mg/dL (0.2-1.0); pH, Urine 5.5 (5.0-9.0)
[2019-02-14 13:59] LABS: RBC/HPF 0-3 HPF (0-3)
[2019-02-14 14:00] LABS: Bacteria/HPF 4+ HPF (None Seen); Squamous Epithelial 0-3 HPF (0-3)
[2019-02-14] MEDS ORDERED: cefTRIAXone\\ROCEPHIN 1 GM VIAL ONE (14:25)
[2019-02-14] MEDS ORDERED: Morphine 4 MG/ML VIAL ONE (14:25)
[2019-02-14 15:17] VITALS: BMI 31.5
[2019-02-14] MEDS ORDERED: Ondansetron PF 4 MG/2 ML Vial SLOW IVP PRN (15:29)
[2019-02-14] MEDS ORDERED: Sodium Chloride 0.9% 10 ML ONE (16:05)
[2019-02-14] MEDS: Sodium Chloride 0.45% 1,000 ML IV SCH (16:06)
[2019-02-14] MEDS ORDERED: HumaLOG 300 UNITS/3 ML VIAL SC SCH (17:00)
[2019-02-14] MEDS ORDERED: Ondansetron ODT 4 MG TAB PO PRN (17:09)
[2019-02-14] MEDS ORDERED: Dextrose 50% Abboject 50 ML SYRINGE IVP PRN (18:09)
[2019-02-14] MEDS ORDERED: Dextrose 5% in Water 1,000 ML IV PRN (18:09)
[2019-02-14] MEDS ORDERED: HumaLOG 300 UNITS/3 ML VIAL SC PRN (18:09)
[2019-02-14] MEDS: HumaLOG 300 UNITS/3 ML VIAL SC PRN (18:28)
[2019-02-14] MEDS: traZODone HCl 50 MG TAB PO PRN (20:47)
[2019-02-14] MEDS: Acetaminophen 500 MG TAB PO PRN (20:47)
[2019-02-14] MEDS: traMADol HCl 50 MG TAB PO PRN (20:48)
[2019-02-14] MEDS: tiZANidine HCl 4 MG TAB PO SCH (20:49)
[2019-02-14] MEDS: Gabapentin 300 MG CAP PO SCH (20:49)
[2019-02-14] MEDS: Lantus 1000 UNITS/10 ML VIAL SC SCH (20:50)
[2019-02-14] MEDS: hydrALAZINE 25 MG TAB PO SCH (20:50)
[2019-02-14] MEDS ORDERED: Lantus 1000 UNITS/10 ML VIAL SC SCH (21:00)
[2019-02-15] MEDS: Acetaminophen 500 MG TAB PO PRN ×3 (03:54→21:01)
[2019-02-15] MEDS: Meclizine HCl 25 MG TAB PO PRN (03:54)
[2019-02-15] MEDS: traMADol HCl 50 MG TAB PO PRN ×3 (03:55→21:01)
[2019-02-15] MEDS: Sodium Chloride 0.45% 1,000 ML IV SCH (03:57)
[2019-02-15 05:14] LABS: #Basophils 0.1 thou/uL (0.0-0.2); #Lymphocytes 1.7 thou/uL (1.20-3.40); #Monocytes 0.5 thou/uL (0.11-0.59); #Neutrophils 6.8 thou/uL (1.40-6.50); %Basophils 0.6 % (0.0-1.0); %Eosinophils 0.5 % (0.0-10.0); %Lymphocytes 18.3 % (21.0-51.0); %Monocytes 5.9 % (0.0-10.0); %Neutrophils 74.7 % (42.0-75.0); Hemoglobin 10.7 g/dL (12.0-16.0); Mean Corpuscular HGB CONC 32.9 g/dL (32.0-36.0); Mean Corpuscular Hemoglobin 28.2 pg (27.0-31.0); Mean Corpuscular Volume 85.7 fL (78.0-98.0); Mean Platelet Volume 9.1 fL (7.4-10.4); Platelet Count 170 thou/uL (130-400); RBC Distribution Width 12.5 % (11.5-14.5); Red Blood Cell (RBC) Count 3.78 mill/uL (4.20-5.40); White Blood Cell (WBC) Count 9.1 thou/uL (4.8-10.8)
[2019-02-15 05:33] LABS: Anion Gap 13 mmol/L (10-20); BUN (Urea Nitrogen) 19 mg/dL (7.0-18.7); Calc. Creatinine Clearance 55 mL/min (70-130); Calcium 8.1 mg/dL (7.8-10.44); Carbon Dioxide 21 mmol/L (22-29); Chloride 105 mmol/L (98-107); Estimated GFR-MDRD 25; Glucose 157 mg/dL (70-105); Potassium 3.9 mmol/L (3.5-5.1); Sodium 135 mmol/L (136-145)
[2019-02-15] MEDS: tiZANidine HCl 4 MG TAB PO SCH ×3 (08:54→21:01)
[2019-02-15] MEDS: hydrALAZINE 25 MG TAB PO SCH ×3 (08:54→21:01)
[2019-02-15] MEDS: Amlodipine 10 MG TAB PO SCH (08:54)
[2019-02-15] MEDS: Gabapentin 300 MG CAP PO SCH ×3 (08:54→21:01)
[2019-02-15] MEDS: Lantus 1000 UNITS/10 ML VIAL SC SCH ×2 (08:56→21:05)
[2019-02-15] MEDS: HumaLOG 300 UNITS/3 ML VIAL SC PRN ×2 (11:18→16:24)
[2019-02-15] MEDS ORDERED: cloNIDine 0.1 MG TAB PO PRN (13:20)
[2019-02-15] MEDS ORDERED: Sodium Chloride 0.9% 10 ML ONE (13:42)
[2019-02-15] MEDS: Sodium Chloride 0.9% 1,000 ML IV SCH (13:45)
--- NOTE | 2019-02-15 14:20 | HP ---
CHIEF COMPLAINT: Fever with nausea, vomiting, and failing outpatient treatment for UTI. She apparently had vomiting x4 yesterday. HISTORY OF PRESENT ILLNESS: She was noted to have a UA showing 4 to 6 WBC, but 4+ bacteria. White count of 14,000, and because of nausea was felt that she would not be able to tolerate p.o. antibiotics, so was admitted to the hospital. She also had an elevated creatinine, which initially was thought to be dehydration. She was started on IV fluids, IV Rocephin, IV Zofran, and admitted to the hospital. This morning, she is feeling much better. She is tolerating her p.o. intake. No further nausea. No fever or chills. Cultures are pending, feeling better. Her creatinine is still high, but slightly better. I am not sure if this is chronic or this is new. So, I advised her the plan is to do one more day of IV fluids switch her to oral antibiotics and go from there. PAST MEDICAL HISTORY: 1. Hypertension. 2. Diabetes mellitus type 2. 3. Chronic kidney disease stage 2 to 3. 4. Coronary artery disease. 5. Gastroesophageal reflux disease. 6. History of noncompliance. PAST SURGICAL HISTORY: 1. Back surgery L5-S1 diskectomy. 2. Tonsillectomy. 3. Bilateral tubal ligations. 4. Cardiac catheterization for non STEMI. FAMILY HISTORY: Positive for diabetes mellitus type 2 in both mother and father and coronary artery disease in her mother. PSYCHOSOCIAL HISTORY: Denies any alcohol or recreational drug use. She has used cocaine in the past. She continues to smoke cigarettes about 2 to 3 a day. MEDICATIONS: She apparently is on the following medications at home. 1. Norvasc 10 mg p.o. daily. 2. Carvedilol 25 mg p.o. b.i.d. 3. Gabapentin 300 mg p.o. t.i.d. 4. Hydralazine 25 mg p.o. t.i.d. 5. Lantus 86 units subcu b.i.d. 6. Tizanidine 4 mg t.i.d. 7. Tramadol 50 mg q.6h p.r.n. 8. Trazodone 50 mg at bedtime p.r.n. REVIEW OF SYSTEMS: CARDIOVASCULAR SYSTEM: Denies any chest pain, shortness of breath, palpitations, PND, orthopnea, pedal edema. RESPIRATORY SYSTEM: Denies any chronic cough, expectoration, or pleuritic type chest pain. GASTROINTESTINAL SYSTEM: Recurrent episodes of nausea and vomiting. Denies any hematemesis, melena, hematochezia. GENITOURINARY SYSTEM: Occasional urgency and frequency. No hematuria. MUSCULOSKELETAL SYSTEM: Has been noticing back pain which is chronic. CENTRAL NERVOUS SYSTEM: Does have some chronic radicular/neuropathic pain, on gabapentin. No localized numbness, weakness, or fainting spells. HEENT: No difficulty with speech, vision, hearing, or swallowing. SKIN: No rash. PHYSICAL EXAMINATION: GENERAL: A very pleasant 43-year-old female, who is resting comfortably in bed and denies any concerns or questions. No family at bedside. She responds appropriately. VITAL SIGNS: She is afebrile. Heart rate is 98, respirations are 20, oxygen saturation 92% on room air, blood pressure 171/92, this is this morning before she got her blood pressure medicines. HEENT: Normocephalic, atraumatic. Pupils equally reactive to light and accommodation. NECK: No JVD, thyromegaly, cervical lymphadenopathy, or throat exudates. No carotid bruits. CARDIOVASCULAR SYSTEM: S1 and S2 plus. Rate and rhythm regular. RESPIRATORY SYSTEM: Normal vesicular breath sounds heard in all lung goel. ABDOMEN: Soft, nontender. Bowel sounds heard in all quadrants. No CV angle tenderness. EXTREMITIES: Without cyanosis or clubbing. Peripheral pulses are palpable. CENTRAL NERVOUS SYSTEM: AAO x3. Cranial nerves 2 through 12 intact. Grossly nonfocal. LABORATORY VALUES: From this morning, sodium 135, potassium 3.9, BUN and creatinine is 19 and 2.15, yesterday it was 18 and 2.23. Blood sugars are 205, 253, 157 and 145. CBC shows a white count of 9.1, H and H are 10.7 and 32.4, yesterday white count was 14. Cultures are pending. IMPRESSION: 1. Possible urinary tract infection with nausea and vomiting. 2. Chronic kidney disease stage 3, not sure if this creatinine is baseline for her. 3. Hypertension. 4. Diabetes mellitus type 2. 5. Coronary artery disease. 6. History of chronic low back pain with possible radicular pain. 7. Tobacco abuse. PLAN: 1. Switch her to oral Bactrim. 2. Start normal saline at 100 mL an hour. 3. Continue home medications. 4. Clonidine 0.1 mg p.o. q.4 p.r.n. 5. Increase Lantus to 60 units b.i.d. I had started her on 40. 6. Continue Accu-Cheks with sliding scale coverage. 7. 1800 calorie heart healthy ADA diet. 8. Activity as tolerated. 9. Recheck BMP, CBC in the morning. 10. Anticipate discharging her home tomorrow, on Bactrim. Discussed with the patient and nursing in detail. All questions answered. Job ID: [id number]
[2019-02-15] MEDS: Carvedilol 25 MG TAB PO SCH (16:23)
[2019-02-15] MEDS ORDERED: Sulfameth/Trimethoprim DS 800-160mg TAB PO SCH (21:00)
[2019-02-15] MEDS: traZODone HCl 50 MG TAB PO PRN (21:01)
[2019-02-16] MEDS: Sodium Chloride 0.9% 1,000 ML IV SCH (00:27)
[2019-02-16 05:25] LABS: #Basophils 0.1 thou/uL (0.0-0.2); #Eosinphils 0.1 thou/uL (0.0-0.7); #Lymphocytes 1.5 thou/uL (1.20-3.40); #Monocytes 0.5 thou/uL (0.11-0.59); #Neutrophils 7.9 thou/uL (1.40-6.50); %Basophils 0.7 % (0.0-1.0); %Eosinophils 0.8 % (0.0-10.0); %Lymphocytes 14.5 % (21.0-51.0); %Monocytes 4.9 % (0.0-10.0); %Neutrophils 79.2 % (42.0-75.0); Hemoglobin 10.2 g/dL (12.0-16.0); Mean Corpuscular HGB CONC 32.5 g/dL (32.0-36.0); Mean Corpuscular Volume 86.3 fL (78.0-98.0); Mean Platelet Volume 8.7 fL (7.4-10.4); Platelet Count 166 thou/uL (130-400); RBC Distribution Width 12.3 % (11.5-14.5); Red Blood Cell (RBC) Count 3.63 mill/uL (4.20-5.40)
[2019-02-16 05:31] LABS: Anion Gap 15 mmol/L (10-20); BUN (Urea Nitrogen) 19 mg/dL (7.0-18.7); Calc. Creatinine Clearance 55 mL/min (70-130); Carbon Dioxide 19 mmol/L (22-29); Chloride 105 mmol/L (98-107); Estimated GFR-MDRD 25; Glucose 126 mg/dL (70-105); Potassium 4.5 mmol/L (3.5-5.1); Sodium 134 mmol/L (136-145)
[2019-02-16] MEDS: Acetaminophen 500 MG TAB PO PRN ×4 (05:35→23:16)
[2019-02-16] MEDS: traMADol HCl 50 MG TAB PO PRN ×3 (05:36→23:16)
[2019-02-16] MEDS: Cefdinir 300 MG CAP PO SCH ×2 (08:48→21:07)
[2019-02-16] MEDS: guaiFENesin ER 600 MG TAB PO SCH ×2 (08:48→21:06)
[2019-02-16] MEDS: Amlodipine 10 MG TAB PO SCH (08:48)
[2019-02-16] MEDS: Gabapentin 300 MG CAP PO SCH ×3 (08:49→21:06)
[2019-02-16] MEDS: hydrALAZINE 25 MG TAB PO SCH ×3 (08:49→21:07)
[2019-02-16] MEDS: Carvedilol 25 MG TAB PO SCH ×2 (08:49→17:07)
[2019-02-16] MEDS: tiZANidine HCl 4 MG TAB PO SCH ×3 (08:49→21:06)
[2019-02-16] MEDS: Lantus 1000 UNITS/10 ML VIAL SC SCH ×2 (08:49→21:11)
--- NOTE | 2019-02-16 09:24 | PRG ---
DATE OF SERVICE: 02/16/2019 SUBJECTIVE: Ms. Gleason is doing well except she did have a T-max of 101 last night. She is also having some right-sided facial numbness and significant sinus congestion. She denies any chills. She does have a dry cough. Denies any lightheadedness or dizziness. No further nausea. Tolerating her p.o. intake. Urine cultures and blood cultures are still pending. Plan is to stop her IV fluids, switch her Bactrim to Omnicef to get some upper respiratory coverage as well, add Mucinex, get her out of bed and moving around, and if she does well today with no fevers and if blood cultures and urine cultures remain negative, we will discharge her home tomorrow. She is agreeable to the plan. No family at bedside. OBJECTIVE: VITAL SIGNS: She is afebrile, T-max 101, current temperature is 99.5, pulse 97, respirations 20, oxygen saturation 97%, blood pressure 169/86. CARDIOVASCULAR SYSTEM: S1, S2 plus. RESPIRATORY SYSTEM: Normal vesicular breath sounds. ABDOMEN: Soft, nontender. Bowel sounds heard in all quadrants. EXTREMITIES: Without cyanosis, clubbing. Peripheral pulses are palpable. HEENT: Right-sided maxillary sinus tenderness. PND is present. LABORATORY VALUES: Sodium 134, potassium 4.5, BUN and creatinine is 19 and 2.15. Blood sugars are 161, 263, 126, and 118. White count is 10, with an H and H of 10.2 and 31.3. IMPRESSION: 1. Possible urinary tract infection. 2. Possible acute maxillary infection. 3. Diabetes mellitus type 2. 4. Chronic kidney disease, stage III. 5. Chronic low back pain. 6. Coronary artery disease. 7. Gastroesophageal reflux disease. PLAN: 1. Continue current medications except DC her IV fluids. 2. Switch Bactrim to Omnicef 300 mg b.i.d. 3. Mucinex 600 mg p.o. b.i.d. 4. Ambulate in hallways with assistance. 5. Await culture. 6. Recheck laboratory values in the morning. 7. 1800 calorie heart healthy ADA diet. 8. Accu-Cheks with sliding scale coverage. 9. Monitor blood pressure and adjust medications as needed. 10. Anticipate discharge her home tomorrow. Discussed with nursing and patient in detail. All questions answered. Job ID: [id number]
[2019-02-16] MEDS: HumaLOG 300 UNITS/3 ML VIAL SC PRN ×2 (12:14→17:08)
[2019-02-16] MEDS ORDERED: Sodium Chloride 0.65% Nasal 44 ML BOT EA NARE PRN (16:27)
[2019-02-16] MEDS ORDERED: Loratadine 10 MG TAB PO SCH (17:00)
[2019-02-16] MEDS: Sodium Chloride 0.65% Nasal 44 ML BOT EA NARE SCH ×2 (17:07→21:07)
[2019-02-16] MEDS: traZODone HCl 50 MG TAB PO PRN (23:16)
[2019-02-17] MEDS: Acetaminophen 500 MG TAB PO PRN ×4 (05:21→20:13)
[2019-02-17] MEDS: traMADol HCl 50 MG TAB PO PRN ×3 (05:21→20:14)
[2019-02-17 05:55] LABS: Anion Gap 22 mmol/L (10-20); BUN (Urea Nitrogen) 24 mg/dL (7.0-18.7); Calc. Creatinine Clearance 48 mL/min (70-130); Chloride 115 mmol/L (98-107); Estimated GFR-MDRD 22; Glucose 123 mg/dL (70-105); Sodium 140 mmol/L (136-145)
[2019-02-17 06:17] LABS: #Basophils 0.1 thou/uL (0.0-0.2); #Eosinphils 0.2 thou/uL (0.0-0.7); #Monocytes 0.5 thou/uL (0.11-0.59); %Basophils 0.6 % (0.0-1.0); %Eosinophils 1.6 % (0.0-10.0); %Lymphocytes 20.4 % (21.0-51.0); %Monocytes 5.2 % (0.0-10.0); %Neutrophils 72.2 % (42.0-75.0); Hemoglobin 10.9 g/dL (12.0-16.0); Mean Corpuscular Hemoglobin 27.7 pg (27.0-31.0); Mean Corpuscular Volume 86.6 fL (78.0-98.0); Mean Platelet Volume 8.4 fL (7.4-10.4); Platelet Count 207 thou/uL (130-400); RBC Distribution Width 12.4 % (11.5-14.5); Red Blood Cell (RBC) Count 3.93 mill/uL (4.20-5.40); White Blood Cell (WBC) Count 9.7 thou/uL (4.8-10.8)
[2019-02-17 06:20] LABS: Carbon Dioxide 19 mmol/L (22-29); Potassium 4.3 mmol/L (3.5-5.1)
[2019-02-17] MEDS: guaiFENesin ER 600 MG TAB PO SCH ×2 (08:18→20:13)
[2019-02-17] MEDS: Amlodipine 10 MG TAB PO SCH (08:18)
[2019-02-17] MEDS: Loratadine 10 MG TAB PO SCH (08:18)
[2019-02-17] MEDS: Gabapentin 300 MG CAP PO SCH ×3 (08:18→20:14)
[2019-02-17] MEDS: Cefdinir 300 MG CAP PO SCH ×2 (08:18→20:13)
[2019-02-17] MEDS: hydrALAZINE 25 MG TAB PO SCH ×3 (08:18→20:14)
[2019-02-17] MEDS: tiZANidine HCl 4 MG TAB PO SCH ×3 (08:18→20:14)
[2019-02-17] MEDS: Carvedilol 25 MG TAB PO SCH ×2 (08:18→16:53)
[2019-02-17] MEDS: Sodium Chloride 0.65% Nasal 44 ML BOT EA NARE SCH ×4 (08:19→20:30)
[2019-02-17] MEDS: Lantus 1000 UNITS/10 ML VIAL SC SCH ×2 (08:19→20:15)
--- NOTE | 2019-02-17 10:22 | PRG ---
DATE OF SERVICE: 02/17/2019 SUBJECTIVE: Ms. Gleason is doing better. She did have another episode of fever with a T-max of 100.7. She denies any further nausea. She apparently did ambulate in the hallways, but is a little unsteady. She also states that she has been having off and on blurred vision for the last month and has seen ENT. They thought it was related to an inner ear dysfunction, and apparently, she had some injections. I advised her that she needs to see an investigative writer, and if they can find anything wrong, then she will need to see a neurologist. She is complaining of persistent numbness on the right side of her face and sinus congestion. Examination is negative for any signs to suggest Dixon palsy. Plan is to remove her IV access. Continue the Omnicef as sensitivities are back. Ambulate in the hallways 4 to 5 times a day with assistance and anticipate discharging her tomorrow. OBJECTIVE: VITAL SIGNS: She is afebrile with a T-max of actually 100.1, respirations 20, oxygen saturation 92%, and blood pressure 164/77. CARDIOVASCULAR SYSTEM: S1 and S2 plus. RESPIRATORY SYSTEM: Normal vesicular breath sounds heard in all lung goel. ABDOMEN: Soft and nontender. Bowel sounds heard in all quadrants. EXTREMITIES: Without cyanosis or clubbing. CENTRAL NERVOUS SYSTEM: Awake and responsive. Cranial nerves 2 through 12 intact. Examination for Dixon palsy is essentially negative. Motor system examination, generalized weakness. Facial sensation seems to be slightly decreased on the right, but it is not consistent. LABORATORY VALUES: Blood sugars are much better at 162, 95, 122, and 123. Sodium 140, potassium 4.3, BUN and creatinine is 24 and . White count is 9.7, H and H are 10.9 and 34. IMPRESSION: 1. Urinary tract infection with Escherichia coli. 2. Possible sinusitis. 3. Chronic low back pain with radiculopathy/neuropathy. 4. Hypertension. 5. Diabetes mellitus type 2, much improved. 6. Possible chronic kidney disease, stage 3. PLAN: 1. Continue Omnicef 300 mg p.o. b.i.d. for a total of 10 days. 2. Ambulate in the hallways with assistance four times a day or more. 3. 1800-calorie heart-healthy ADA diet. 4. Accu-Cheks with sliding scale coverage. 5. Monitor blood pressure and adjust medications as needed. 6. Discontinue IV access. 7. Outpatient followup with Ophthalmology and possibly Neurology. 8. No clinical evidence for any imaging at this time. 9. Discussed with the patient and nursing in detail. All questions answered. 10. No family at bedside. Job ID: [id number]
[2019-02-17] MEDS: Albuterol Sulfate 2.5 mg/3 ml Neb NEB PRN (12:24)
--- NOTE | 2019-02-17 13:20 | RAD ---
EXAM: XR Chest Pa Lat STANDARD PROVIDED CLINICAL HISTORY: Hypoxia COMPARISON: 06/25/2016 FINDINGS: Cardiac silhouette is upper limits normal in size. There is prominence of the pulmonary vasculature a nd pulmonary interstitium with patchy perihilar airspace disease suspected. No evidence for pleural fluid or pneumothorax. IMPRESSION: Prominence of the pulmonary vasculature and bilateral perihilar airspace disease suggesting congestiv e failure and alveolar edema. Follow-up recommended.
[2019-02-17] MEDS: Meclizine HCl 25 MG TAB PO PRN (14:39)
[2019-02-17] MEDS: traZODone HCl 50 MG TAB PO PRN (20:14)
[2019-02-18] MEDS: traMADol HCl 50 MG TAB PO PRN (05:42)
[2019-02-18] MEDS: Acetaminophen 500 MG TAB PO PRN ×2 (05:42→10:44)
[2019-02-18] MEDS: Carvedilol 25 MG TAB PO SCH (08:38)
[2019-02-18] MEDS: Sodium Chloride 0.65% Nasal 44 ML BOT EA NARE SCH (08:38)
[2019-02-18] MEDS: Loratadine 10 MG TAB PO SCH (08:38)
[2019-02-18] MEDS: Cefdinir 300 MG CAP PO SCH (08:38)
[2019-02-18] MEDS: Amlodipine 10 MG TAB PO SCH (08:38)
[2019-02-18] MEDS: Gabapentin 300 MG CAP PO SCH (08:38)
[2019-02-18] MEDS: Lantus 1000 UNITS/10 ML VIAL SC SCH (08:39)
[2019-02-18] MEDS: hydrALAZINE 25 MG TAB PO SCH (08:39)
[2019-02-18] MEDS: tiZANidine HCl 4 MG TAB PO SCH (08:39)
[2019-02-18] MEDS: Albuterol Sulfate 2.5 mg/3 ml Neb NEB PRN (08:39)
[2019-02-18] MEDS: guaiFENesin ER 600 MG TAB PO SCH (08:39)
[2019-02-18] MEDS ORDERED: Torsemide 20 MG TAB PO SCH (09:00)
[2019-02-18 09:14] LABS: Anion Gap 16 mmol/L (10-20); BUN (Urea Nitrogen) 23 mg/dL (7.0-18.7); Calc. Creatinine Clearance 48 mL/min (70-130); Calcium 8.3 mg/dL (7.8-10.44); Carbon Dioxide 19 mmol/L (22-29); Chloride 106 mmol/L (98-107); Estimated GFR-MDRD 22; Glucose 123 mg/dL (70-105); Potassium 4.7 mmol/L (3.5-5.1); Sodium 136 mmol/L (136-145)
[2019-02-18] MEDS ORDERED: Enoxaparin Sodium 40 MG/0.4 ML SYRINGE SC SCH (10:30)
[2019-02-18] MEDS ORDERED: Sodium Chloride 0.9% 20 ML ONE (10:32)
[2019-02-18 11:14] VITALS: BP 160/80; TEMP 100.1
--- NOTE | 2019-02-18 23:19 | DIS ---
DATE OF ADMISSION: 02/14/2019 DATE OF DISCHARGE: 02/18/2019 PRINCIPAL DIAGNOSIS: Sudden onset of hypoxia with temperature spikes, but normal white count and is on antibiotics for Escherichia coli urinary tract infection. SECONDARY DIAGNOSES: 1. Chronic kidney disease stage 3 to 4. 2. Coronary artery disease with chronic RCA occlusion. 3. Hypertension. 4. Diabetes mellitus type 2. 5. Gastroesophageal reflux disease. 6. Chronic back pain. 7. Echo in August of 2018 showing ejection fraction of 55% to 60% with concentric left ventricular hypertrophy and trace mitral regurgitation. 8. Persistent back pain requiring gabapentin, tizanidine, and tramadol. 9. Negative blood cultures. COMPLICATIONS: None. CONSULTATIONS: None. HOSPITAL COURSE: The patient was admitted on 02/14 after having multiple visits to the ER for nausea and vomiting. Her workup was essentially unremarkable except for possible UTI. It was felt that she cannot tolerate p.o. antibiotics because of the nausea, so she was admitted to the hospital here. She was started on IV fluids, IV Zofran, and IV Rocephin. She felt better the next day. Her white count went from 14.9 back to normal. She did have a low-grade temperature. She was continued on the Rocephin and IV antibiotics for one more day. Her urine cultures came back positive for E. coli. She was switched to Bactrim and her IV fluids were discontinued. She stated that she felt weak, so she was ambulated in the hallways with nursing. The next day, she started complaining of some sinus congestion and so her antibiotics were switched to Omnicef to cover both sinuses as well as her E. coli in the bladder. On Tuesday, she did develop shortness of breath requiring 2 L of oxygen. She was given a breathing treatment which really helped. Chest x-ray was done, which shows bilateral hilar infiltrates suggesting fluid overload or heart failure. BNP was done, which was borderline at 116. Her creatinine was 2.43. She also had a temperature spike of 102.5. Her white count has remained normal. She continues on the Omnicef. PHYSICAL EXAMINATION: Her lungs does have some crackles in the right base, but otherwise is unremarkable. Her sinus congestion seems to be improved with the Mucinex. She denies any hemoptysis. Bilateral leg examination does not show any calf swelling or tenderness. At this point, my concern is whether this is an atypical pneumonia, whether this is new onset heart failure, or whether it is a pulmonary embolism given that she has a temperature, normal white count, on antibiotics for E. coli with history of heart disease. I would like to get a CT angio to rule out a PE, but with her creatinine of 2.43, contrast cannot be given. Unfortunately, we do not have the capability to do venous Doppler here as well as a V/Q scan, so after discussing with the ER physician and the director of religious activities, the plan is to transfer her to [facility] in [place] where at least we can get a venous Doppler and if that is negative, admit her to the hospital, have specialist consults obtained from Pulmonary and Cardiology and possibly even Infectious Disease standpoint to see what is causing her hypoxemia and the infiltrates as well as the temperature spike. She has been mobile in her room and since Tuesday has been walking in the hallways. PHYSICAL EXAMINATION: VITAL SIGNS: On the day of discharge to the ER, her T-max this morning was 102.5, is back down to normal. Pulse 82, respirations 18, oxygen saturation 93% on 2 L. CARDIOVASCULAR SYSTEM: S1-S2 plus. RESPIRATORY SYSTEM: Normal vesicular breath sounds with occasional crackles in the right lung base. ABDOMEN: Soft, nontender. Bowel sounds in all quadrants. EXTREMITIES: Without cyanosis, clubbing, or edema. No calf tenderness. No Homans or Ra sign. CENTRAL NERVOUS SYSTEM: Awake and responsive. She does have some balance issues, which is chronic. Cranial nerves 2 through 12 grossly intact. LABORATORY VALUES: White count yesterday was 9.4, H and H are 10.9 and 34. Chemistry shows a sodium today of 136, potassium 4.7, BUN and creatinine 23 and 2.43. Blood sugars are excellent at 141, 148, 141, and 123. BNP was slightly elevated at 113, but given her creatinine of 2.4, I am not sure it means much. Chest x-ray does show bilateral hilar fullness suggestive of fluid overload. I did give her 20 of Demadex this morning. I have asked staff to give her 40 of Lovenox and I spoke with Dr. Sibley up at [facility]. For full details, please see chart. Job ID: [id number]
== END 2019-02-18 11:16 | disposition critical access hospital (66) | DRG 690 ==
LOC: NAV ERS 11:20 → NAV ACUTE 15:02
PROVIDERS: ADMIT Internal Medicine; ATTEND Internal Medicine
DX: N39.0 Urinary tract infection, site not specified (principal); E11.22 Type 2 diabetes mellitus with diabetic chronic kidney disease; I12.9 Hypertensive chronic kidney disease with stage 1 through stage 4 chronic kidney disease, or unspecified chronic kidney disease; N18.3 Chronic kidney disease, stage 3 (moderate); I25.10 Atherosclerotic heart disease of native coronary artery without angina pectoris; G89.29 Other chronic pain; B96.20 Unspecified Escherichia coli [E. coli] as the cause of diseases classified elsewhere; R09.02 Hypoxemia; K21.9 Gastro-esophageal reflux disease without esophagitis; M54.5 Low back pain; F17.210 Nicotine dependence, cigarettes, uncomplicated; Z98.51 Tubal ligation status; Z90.89 Acquired absence of other organs; Z79.4 Long term (current) use of insulin
CPT/HCPCS: 36415; 36416; 51701; 71045; 71046; 80048; 80053; 81003; 81015; 83605; 83690; 83880; 85025; 87040; 87077; 87086; 87186; 87804; 96374; 96375; A4353; J0696; J1650; J1815; J2270; J2405; J7050; J7611; J8499; Q0162

== ENCOUNTER 2019-02-18 11:12 | Emergency (ER) | payer OTHER ==
--- NOTE | 2019-02-18 12:25 | RAD ---
EXAM: XR Chest Pa Lat STANDARD PROVIDED CLINICAL HISTORY: Cough COMPARISON: 02/17/2019 FINDINGS: Cardiac silhouette remains enlarged. Prominence of the pulmonary vasculature and pulmonary interstiti um are redemonstrated. Patchy bilateral airspace disease is again seen predominantly in the perihilar regions. No pleural fluid or pneumothorax evident. IMPRESSION: Findings suggesting congestive failure and alveolar edema. Infectious etiologies could also be consid ered. Follow up recommended.
== END 2019-02-18 13:30 | disposition short-term general hospital (02) ==
LOC: NAV ERS 11:12
DX: J18.9 Pneumonia, unspecified organism (principal); I12.9 Hypertensive chronic kidney disease with stage 1 through stage 4 chronic kidney disease, or unspecified chronic kidney disease; N18.9 Chronic kidney disease, unspecified; I25.2 Old myocardial infarction; I25.10 Atherosclerotic heart disease of native coronary artery without angina pectoris; E11.22 Type 2 diabetes mellitus with diabetic chronic kidney disease; Z79.4 Long term (current) use of insulin; F41.9 Anxiety disorder, unspecified; F32.9 Major depressive disorder, single episode, unspecified; F17.210 Nicotine dependence, cigarettes, uncomplicated; Z79.899 Other long term (current) drug therapy
CPT/HCPCS: 71046; 84484; 93005; 36415-59; J7620

== ENCOUNTER 2019-05-22 19:13 | Emergency (ER) | payer OTHER, SELFPAY ==
--- NOTE | 2019-05-22 19:58 | CT ---
Head CT without contrast 05/22/2019: COMPARISON: 04/04/2019 HISTORY: Weakness, facial swelling, pain TECHNIQUE: Axial CT imaging at 5 mm intervals from vertex through skull base without contrast FINDINGS: Imaged paranasal sinuses and mastoid air cells are well aerated. No displaced calvarial fra cture. Stable hypodensity within the cerebellum on the right suggest prior infarction. No intracranial hemorrhage, midline shift, or mass effect. IMPRESSION: No acute findings.
[2019-05-22 20:10] LABS: #Basophils 0.1 thou/uL (0.0-0.2); #Eosinphils 0.1 thou/uL (0.0-0.7); #Lymphocytes 3.2 thou/uL (1.20-3.40); #Monocytes 0.5 thou/uL (0.11-0.59); #Neutrophils 7.3 thou/uL (1.40-6.50); %Basophils 0.8 % (0.0-1.0); %Eosinophils 0.9 % (0.0-10.0); %Lymphocytes 28.9 % (21.0-51.0); %Monocytes 4.5 % (0.0-10.0); %Neutrophils 64.8 % (42.0-75.0); Hemoglobin 11.6 g/dL (12.0-16.0); Mean Corpuscular Hemoglobin 29.2 pg (27.0-31.0); Mean Corpuscular Volume 85.7 fL (78.0-98.0); Mean Platelet Volume 7.9 fL (7.4-10.4); Platelet Count 283 thou/uL (130-400); RBC Distribution Width 12.3 % (11.5-14.5); Red Blood Cell (RBC) Count 3.97 mill/uL (4.20-5.40); White Blood Cell (WBC) Count 11.2 thou/uL (4.8-10.8)
[2019-05-22 20:19] LABS: ALT (SGPT) 15 U/L (8-55); AST (SGOT) 10 U/L (5-34); Albumin 3.6 g/dL (3.5-5.0); Alkaline Phosphatase 169 U/L (40-150); Anion Gap 15 mmol/L (10-20); BUN (Urea Nitrogen) 27 mg/dL (7.0-18.7); Bilirubin, Total 0.2 mg/dL (0.2-1.2); Calc. Creatinine Clearance 0 mL/min (70-130); Calcium 8.8 mg/dL (7.8-10.44); Carbon Dioxide 22 mmol/L (22-29); Chloride 101 mmol/L (98-107); Estimated GFR-MDRD 22; Globulin 3.7 g/dL (2.4-3.5); Glucose 195 mg/dL (70-105); Potassium 3.9 mmol/L (3.5-5.1); Protein, Total 7.3 g/dL (6.0-8.3); Sodium 134 mmol/L (136-145)
[2019-05-22] MEDS ORDERED: Aspirin Chewable 81 MG TAB ONE (20:34)
== END 2019-05-22 21:04 | disposition short-term general hospital (02) ==
LOC: NAV ERS 19:13
DX: I63.9 Cerebral infarction, unspecified (principal); R47.01 Aphasia; I25.10 Atherosclerotic heart disease of native coronary artery without angina pectoris; K21.9 Gastro-esophageal reflux disease without esophagitis; I25.2 Old myocardial infarction; I12.9 Hypertensive chronic kidney disease with stage 1 through stage 4 chronic kidney disease, or unspecified chronic kidney disease; N18.3 Chronic kidney disease, stage 3 (moderate); E11.22 Type 2 diabetes mellitus with diabetic chronic kidney disease; Z86.73 Personal history of transient ischemic attack (TIA), and cerebral infarction without residual deficits; Z87.891 Personal history of nicotine dependence; Z79.899 Other long term (current) drug therapy; Z79.4 Long term (current) use of insulin
CPT/HCPCS: 70450; 80053; 85025; 93005

== ENCOUNTER 2019-09-21 23:40 | Emergency (ER) | payer MEDICARE, OTHER, SELFPAY ==
[2019-09-22 00:37] LABS: #Basophils 0.1 thou/uL (0.0-0.2); #Eosinphils 0.1 thou/uL (0.0-0.7); #Lymphocytes 2.4 thou/uL (1.20-3.40); #Monocytes 0.4 thou/uL (0.11-0.59); #Neutrophils 5.3 thou/uL (1.40-6.50); %Basophils 1.1 % (0.0-1.0); %Eosinophils 1.6 % (0.0-10.0); %Lymphocytes 28.9 % (21.0-51.0); %Monocytes 4.2 % (0.0-10.0); %Neutrophils 64.2 % (42.0-75.0); Mean Corpuscular HGB CONC 32.9 g/dL (32.0-36.0); Mean Corpuscular Hemoglobin 28.8 pg (27.0-31.0); Mean Corpuscular Volume 87.6 fL (78.0-98.0); Mean Platelet Volume 8.9 fL (7.4-10.4); Platelet Count 257 thou/uL (130-400); RBC Distribution Width 12.2 % (11.5-14.5); Red Blood Cell (RBC) Count 3.81 mill/uL (4.20-5.40); White Blood Cell (WBC) Count 8.3 thou/uL (4.8-10.8)
[2019-09-22 00:52] LABS: ALT (SGPT) 16 U/L (8-55); AST (SGOT) 16 U/L (5-34); Albumin 3.4 g/dL (3.5-5.0); Alkaline Phosphatase 126 U/L (40-110); Anion Gap 16 mmol/L (10-20); BUN (Urea Nitrogen) 31 mg/dL (7.0-18.7); Bilirubin, Total 0.1 mg/dL (0.2-1.2); Calc. Creatinine Clearance 0 mL/min (70-130); Calcium 7.8 mg/dL (7.8-10.44); Carbon Dioxide 19 mmol/L (22-29); Chloride 100 mmol/L (98-107); Estimated GFR-MDRD 16; Globulin 3.3 g/dL (2.4-3.5); Glucose 548 mg/dL (70-105); Protein, Total 6.7 g/dL (6.0-8.3); Sodium 131 mmol/L (136-145)
== END 2019-09-22 01:24 | disposition home or self-care (01) ==
LOC: NAV ERS 23:40
DX: E11.65 Type 2 diabetes mellitus with hyperglycemia (principal); E11.22 Type 2 diabetes mellitus with diabetic chronic kidney disease; N18.9 Chronic kidney disease, unspecified; K21.9 Gastro-esophageal reflux disease without esophagitis; I12.9 Hypertensive chronic kidney disease with stage 1 through stage 4 chronic kidney disease, or unspecified chronic kidney disease; Z87.891 Personal history of nicotine dependence; Z86.73 Personal history of transient ischemic attack (TIA), and cerebral infarction without residual deficits; Z79.4 Long term (current) use of insulin; Z79.899 Other long term (current) drug therapy; Z79.891 Long term (current) use of opiate analgesic
CPT/HCPCS: 36415; 80053; 85025; 99283

== ENCOUNTER 2019-12-12 22:46 | Emergency (ER) | payer MEDICARE, OTHER, SELFPAY ==
[2019-12-12] MEDS ORDERED: Morphine 4 MG/ML VIAL ONE (23:23)
--- NOTE | 2019-12-12 23:32 | RAD ---
Portable frontal chest radiograph: 12/12/2019 COMPARISON: 07/09/2019 HISTORY: Bilateral foot pain, leg pain, swelling FINDINGS: There is pulmonary vascular congestion with perihilar interstitial prominence. No lobar con solidation or alveolar edema. Cardiac silhouette appears prominent. IMPRESSION: Pulmonary vascular congestion with perihilar interstitial prominence. Findings suggest in terstitial edema in the proper clinical setting. No focal consolidation or alveolar edema.
[2019-12-12] MEDS ORDERED: diphenhydrAMINE 50 MG/ML VIAL ONE (23:49)
[2019-12-12] MEDS ORDERED: Furosemide 40 MG/4 ML VIAL ONE (23:49)
[2019-12-12 23:53] LABS: #Basophils 0.1 thou/uL (0.0-0.2); #Eosinphils 0.2 thou/uL (0.0-0.7); #Monocytes 0.4 thou/uL (0.11-0.59); #Neutrophils 7.9 thou/uL (1.40-6.50); %Basophils 0.6 % (0.0-1.0); %Eosinophils 1.5 % (0.0-10.0); %Lymphocytes 18.6 % (21.0-51.0); %Monocytes 4.2 % (0.0-10.0); %Neutrophils 75.1 % (42.0-75.0); Hemoglobin 9.5 g/dL (12.0-16.0); Mean Corpuscular HGB CONC 32.3 g/dL (32.0-36.0); Mean Corpuscular Hemoglobin 29.2 pg (27.0-31.0); Mean Corpuscular Volume 90.5 fL (78.0-98.0); Mean Platelet Volume 7.7 fL (7.4-10.4); Platelet Count 348 thou/uL (130-400); RBC Distribution Width 12.8 % (11.5-14.5); Red Blood Cell (RBC) Count 3.26 mill/uL (4.20-5.40); White Blood Cell (WBC) Count 10.5 thou/uL (4.8-10.8)
[2019-12-12] MEDS ORDERED: Aspirin 325 MG TAB ONE (23:57)
[2019-12-13 00:07] LABS: ALT (SGPT) 16 U/L (8-55); AST (SGOT) 18 U/L (5-34); Albumin 3.1 g/dL (3.5-5.0); Alkaline Phosphatase 229 U/L (40-110); Anion Gap 17 mmol/L (10-20); BUN (Urea Nitrogen) 29 mg/dL (7.0-18.7); Bilirubin, Total 0.2 mg/dL (0.2-1.2); Calc. Creatinine Clearance 0 mL/min (70-130); Calcium 6.9 mg/dL (7.8-10.44); Carbon Dioxide 18 mmol/L (22-29); Chloride 106 mmol/L (98-107); Estimated GFR-MDRD 13; Globulin 4.5 g/dL (2.4-3.5); Glucose 160 mg/dL (70-105); Magnesium 1.7 mg/dL (1.6-2.6); Potassium 4.1 mmol/L (3.5-5.1); Protein, Total 7.6 g/dL (6.0-8.3); Sodium 137 mmol/L (136-145)
[2019-12-13] MEDS ORDERED: Nitroglycerin 2% Ointment 1 INCH/1 GM Packet ONE (00:31)
== END 2019-12-13 01:05 | disposition short-term general hospital (02) ==
LOC: NAV ERS 22:46
DX: I13.0 Hypertensive heart and chronic kidney disease with heart failure and stage 1 through stage 4 chronic kidney disease, or unspecified chronic kidney disease (principal); N18.3 Chronic kidney disease, stage 3 (moderate); I50.9 Heart failure, unspecified; J81.1 Chronic pulmonary edema; D64.9 Anemia, unspecified; R79.89 Other specified abnormal findings of blood chemistry; E87.70 Fluid overload, unspecified; K21.9 Gastro-esophageal reflux disease without esophagitis; E11.9 Type 2 diabetes mellitus without complications; I25.2 Old myocardial infarction; Z86.73 Personal history of transient ischemic attack (TIA), and cerebral infarction without residual deficits; Z79.4 Long term (current) use of insulin; Z87.891 Personal history of nicotine dependence; Z79.899 Other long term (current) drug therapy; Z79.891 Long term (current) use of opiate analgesic
CPT/HCPCS: 36416; 71045; 80053; 82553; 83735; 83880; 84484; 85025; 93005; 94760; 96374; 96375; J1200; J1940; J2270

== ENCOUNTER 2020-05-11 21:36 | Emergency (ER) | payer MEDICARE ==
[2020-05-11] MEDS ORDERED: Aspirin Chewable 81 MG TAB ONE (21:59)
[2020-05-11] MEDS ORDERED: Furosemide 40 MG/4 ML VIAL ONE (22:01)
[2020-05-11 22:12] LABS: #Basophils 0.1 thou/uL (0.0-0.2); #Eosinphils 0.1 thou/uL (0.0-0.7); #Lymphocytes 2.7 thou/uL (1.20-3.40); #Monocytes 0.6 thou/uL (0.11-0.59); #Neutrophils 7.4 thou/uL (1.40-6.50); %Eosinophils 0.8 % (0.0-10.0); %Lymphocytes 25.1 % (21.0-51.0); %Monocytes 5.5 % (0.0-10.0); %Neutrophils 67.7 % (42.0-75.0); Hemoglobin 8.6 g/dL (12.0-16.0); Mean Corpuscular HGB CONC 30.7 g/dL (32.0-36.0); Mean Corpuscular Hemoglobin 27.9 pg (27.0-31.0); Mean Corpuscular Volume 91.1 fL (78.0-98.0); Mean Platelet Volume 8.9 fL (7.4-10.4); Platelet Count 241 thou/uL (130-400); RBC Distribution Width 13.4 % (11.5-14.5); Red Blood Cell (RBC) Count 3.07 mill/uL (4.20-5.40); White Blood Cell (WBC) Count 10.9 thou/uL (4.8-10.8)
[2020-05-11 22:28] LABS: ALT (SGPT) 18 U/L (8-55); AST (SGOT) 15 U/L (5-34); Albumin 3.7 g/dL (3.5-5.0); Alkaline Phosphatase 149 U/L (40-110); Anion Gap 17 mmol/L (10-20); BUN (Urea Nitrogen) 43 mg/dL (7.0-18.7); Bilirubin, Total 0.2 mg/dL (0.2-1.2); CK (CPK) 242 U/L (29-168); Calc. Creatinine Clearance 0 mL/min (70-130); Calcium 6.5 mg/dL (7.8-10.44); Carbon Dioxide 17 mmol/L (22-29); Chloride 107 mmol/L (98-107); Estimated GFR-MDRD 10; Globulin 3.1 g/dL (2.4-3.5); Lipase 14 U/L (8-78); Potassium 4.4 mmol/L (3.5-5.1); Protein, Total 6.8 g/dL (6.0-8.3); Sodium 137 mmol/L (136-145)
[2020-05-11 22:29] LABS: Glucose 55 mg/dL (70-105)
[2020-05-11] MEDS ORDERED: Calcium Chloride 1 GM/10 ML Abboject SYRINGE ONE (22:49)
--- NOTE | 2020-05-12 07:04 | RAD ---
PORTABLE CHEST: Date: 05/11/2020 HISTORY: Chest pain. FINDINGS: Lung goel are clear. Heart and mediastinum appear normal. IMPRESSION: No acute findings. POS: [facility]
== END 2020-05-11 23:49 | disposition short-term general hospital (02) ==
LOC: NAV ERS 21:36
DX: R07.9 Chest pain, unspecified (principal); E83.51 Hypocalcemia; K21.9 Gastro-esophageal reflux disease without esophagitis; I12.9 Hypertensive chronic kidney disease with stage 1 through stage 4 chronic kidney disease, or unspecified chronic kidney disease; N18.3 Chronic kidney disease, stage 3 (moderate); E11.22 Type 2 diabetes mellitus with diabetic chronic kidney disease; I25.2 Old myocardial infarction; Z79.4 Long term (current) use of insulin; Z86.73 Personal history of transient ischemic attack (TIA), and cerebral infarction without residual deficits; Z79.899 Other long term (current) drug therapy; Z87.891 Personal history of nicotine dependence
CPT/HCPCS: 71045; 80053; 82550; 83690; 83880; 84484; 85025; 93005; 96374; 96375; J1940

== ENCOUNTER 2020-05-21 23:53 | Emergency (ER) | payer MEDICARE ==
[2020-05-22 00:56] LABS: Hemoglobin 9.5 g/dL (12.0-16.0); Mean Corpuscular Volume 89.8 fL (78.0-98.0); Red Blood Cell (RBC) Count 3.33 mill/uL (4.20-5.40); White Blood Cell (WBC) Count 10.8 thou/uL (4.8-10.8)
[2020-05-22 00:57] LABS: #Basophils 0.1 thou/uL (0.0-0.2); #Eosinphils 0.2 thou/uL (0.0-0.7); #Lymphocytes 2.3 thou/uL (1.20-3.40); #Monocytes 0.5 thou/uL (0.11-0.59); #Neutrophils 7.8 thou/uL (1.40-6.50); %Basophils 0.8 % (0.0-1.0); %Eosinophils 1.4 % (0.0-10.0); %Lymphocytes 21.7 % (21.0-51.0); %Monocytes 4.4 % (0.0-10.0); %Neutrophils 71.8 % (42.0-75.0); Manual Diff?? NO; Mean Corpuscular HGB CONC 31.6 g/dL (32.0-36.0); Mean Corpuscular Hemoglobin 28.4 pg (27.0-31.0); Mean Platelet Volume 9.1 fL (7.4-10.4); Platelet Count 218 thou/uL (130-400); RBC Distribution Width 12.9 % (11.5-14.5)
[2020-05-22 01:24] LABS: ALT (SGPT) 15 U/L (8-55); AST (SGOT) 21 U/L (5-34); Albumin 3.5 g/dL (3.5-5.0); Alkaline Phosphatase 154 U/L (40-110); Anion Gap 16 mmol/L (10-20); BUN (Urea Nitrogen) 49 mg/dL (7.0-18.7); Bilirubin, Total 0.2 mg/dL (0.2-1.2); Calc. Creatinine Clearance 0 mL/min (70-130); Calcium 6.8 mg/dL (7.8-10.44); Carbon Dioxide 26 mmol/L (22-29); Chloride 99 mmol/L (98-107); Estimated GFR-MDRD 10; Globulin 3.4 g/dL (2.4-3.5); Glucose 88 mg/dL (70-105); Magnesium 1.5 mg/dL (1.6-2.6); Potassium 4.1 mmol/L (3.5-5.1); Protein, Total 6.9 g/dL (6.0-8.3); Sodium 137 mmol/L (136-145)
[2020-05-22] MEDS ORDERED: Sodium Chloride 0.9% 1,000 ML ONE (01:53)
[2020-05-22] MEDS ORDERED: Calcium Chloride 1 GM/10 ML Abboject SYRINGE ONE (01:53)
[2020-05-22] MEDS ORDERED: Sodium Chloride 0.9% 100 ML ONE (01:59)
== END 2020-05-22 03:30 | disposition home or self-care (01) ==
LOC: NAV ERS 23:53
DX: E83.51 Hypocalcemia (principal); E83.42 Hypomagnesemia; R25.2 Cramp and spasm; Z86.73 Personal history of transient ischemic attack (TIA), and cerebral infarction without residual deficits; I25.2 Old myocardial infarction; I25.10 Atherosclerotic heart disease of native coronary artery without angina pectoris; E11.9 Type 2 diabetes mellitus without complications; K21.9 Gastro-esophageal reflux disease without esophagitis; Z79.4 Long term (current) use of insulin; I12.9 Hypertensive chronic kidney disease with stage 1 through stage 4 chronic kidney disease, or unspecified chronic kidney disease; N18.3 Chronic kidney disease, stage 3 (moderate); Z87.891 Personal history of nicotine dependence; Z79.899 Other long term (current) drug therapy
CPT/HCPCS: 80053; 83735; 85025; 96365; J3490; J7050

== ENCOUNTER 2020-07-28 11:54 | Outpatient (CLI) | payer MEDICARE ==
[2020-07-28 13:06] LABS: Anion Gap 17 mmol/L (10-20); BUN (Urea Nitrogen) 46 mg/dL (7.0-18.7); Calc. Creatinine Clearance 0 mL/min (70-130); Calcium 8.2 mg/dL (7.8-10.44); Carbon Dioxide 21 mmol/L (22-29); Chloride 100 mmol/L (98-107); Estimated GFR-MDRD 7; Glucose 209 mg/dL (70-105); Potassium 4.5 mmol/L (3.5-5.1); Sodium 133 mmol/L (136-145)
[2020-07-28 13:07] LABS: Hemoglobin 10.5 g/dL (12.0-16.0)
--- NOTE | 2020-07-28 15:10 | CT ---
CT ABDOMEN AND PELVIS WITHOUT CONTRAST: Date: 07/28/2020 HISTORY: Bilateral flank pain. FINDINGS: Absence of oral and IV contrast reduces the sensitivity of exam, particularly for evaluation of solid organs and bowel. The lung bases are clear. No calcified gallstones are seen. No free air or free fluid is noted in the abdomen or pelvis. No calculi seen in the kidneys, ureters, or the urinary bladder. No hydroureteronephrosis is seen on either side. The small bowel loops are not abnormally dilated. A normal appearing appendix is present. Uterus and ovaries are also seen. There are vascular calcifications without evidence of aneurysmal dilatation of the abdominal aorta. There are degenerative changes in the spine, most prominent at L4-5 and L5-S1 levels. IMPRESSION: No CT evidence of urinary tract calculi or obstruction. POS: [facility]
== END 2020-07-28 11:55 | disposition home or self-care (01) ==
LOC: NAV LAB 11:54
PROVIDERS: ATTEND General Practice
DX: N18.4 Chronic kidney disease, stage 4 (severe) (principal); D63.1 Anemia in chronic kidney disease
CPT/HCPCS: 36415; 74176; 80048; 85014; 85018

== ENCOUNTER 2020-09-26 14:41 | Emergency (ER) | payer MEDICARE ==
[2020-09-26] MEDS ORDERED: Sodium Chloride 0.9% 1,000 ML ONE ×2 (15:41→16:21)
[2020-09-26 15:44] LABS: #Basophils 0.1 thou/uL (0.0-0.2); #Eosinphils 0.1 thou/uL (0.0-0.7); #Lymphocytes 2.4 thou/uL (1.20-3.40); #Monocytes 0.4 thou/uL (0.11-0.59); #Neutrophils 3.7 thou/uL (1.40-6.50); %Basophils 1.1 % (0.0-1.0); %Eosinophils 1.7 % (0.0-10.0); %Lymphocytes 35.5 % (21.0-51.0); %Monocytes 6.5 % (0.0-10.0); %Neutrophils 55.1 % (42.0-75.0); Hemoglobin 9.4 g/dL (12.0-16.0); Mean Corpuscular HGB CONC 32.3 g/dL (32.0-36.0); Mean Corpuscular Hemoglobin 30.7 pg (27.0-31.0); Mean Corpuscular Volume 94.9 fL (78.0-98.0); Mean Platelet Volume 7.6 fL (7.4-10.4); Platelet Count 206 thou/uL (130-400); RBC Distribution Width 11.7 % (11.5-14.5); Red Blood Cell (RBC) Count 3.08 mill/uL (4.20-5.40); White Blood Cell (WBC) Count 6.7 thou/uL (4.8-10.8)
[2020-09-26 15:49] LABS: ALT (SGPT) 13 U/L (8-55); AST (SGOT) 12 U/L (5-34); Albumin 3.2 g/dL (3.5-5.0); Alkaline Phosphatase 145 U/L (40-110); Anion Gap 16 mmol/L (10-20); BUN (Urea Nitrogen) 45 mg/dL (7.0-18.7); Bilirubin, Total 0.2 mg/dL (0.2-1.2); Calc. Creatinine Clearance 0 mL/min (70-130); Carbon Dioxide 15 mmol/L (22-29); Chloride 107 mmol/L (98-107); Globulin 3.2 g/dL (2.4-3.5); Glucose 176 mg/dL (70-105); Lipase 22 U/L (8-78); Potassium 4.4 mmol/L (3.5-5.1); Protein, Total 6.4 g/dL (6.0-8.3); Sodium 134 mmol/L (136-145)
[2020-09-26 17:37] LABS: Anion Gap 16 mmol/L (10-20); BUN (Urea Nitrogen) 45 mg/dL (7.0-18.7); Calc. Creatinine Clearance 0 mL/min (70-130); Calcium 6.7 mg/dL (7.8-10.44); Carbon Dioxide 16 mmol/L (22-29); Chloride 109 mmol/L (98-107); Glucose 130 mg/dL (70-105); Potassium 4.7 mmol/L (3.5-5.1); Sodium 136 mmol/L (136-145)
== END 2020-09-26 18:00 | disposition home or self-care (01) ==
LOC: NAV ERS 14:41
DX: N17.9 Acute kidney failure, unspecified (principal); R19.7 Diarrhea, unspecified; R11.0 Nausea; R68.83 Chills (without fever); E11.9 Type 2 diabetes mellitus without complications; Z79.4 Long term (current) use of insulin; I25.2 Old myocardial infarction; E83.51 Hypocalcemia; K21.9 Gastro-esophageal reflux disease without esophagitis; I12.9 Hypertensive chronic kidney disease with stage 1 through stage 4 chronic kidney disease, or unspecified chronic kidney disease; N18.4 Chronic kidney disease, stage 4 (severe); Z86.73 Personal history of transient ischemic attack (TIA), and cerebral infarction without residual deficits; I25.10 Atherosclerotic heart disease of native coronary artery without angina pectoris; Z87.891 Personal history of nicotine dependence; Z79.899 Other long term (current) drug therapy
CPT/HCPCS: 80053; 83605; 83690; 85025; 99284; J7050